=== PATIENT | male | born 1965 | race Caucasian/White ===

== ENCOUNTER 2023-01-31 13:09 | Outpatient (CLI) | payer BC, SELFPAY ==
--- NOTE | ~2023-01-31 | XR_ITS ---
XR lumbar spine 2-3V 01/31/2023 13:39 Indication: Low back pain Procedure: 3 views lumbar spine Comparison: No prior studies for comparison. Findings: There is disc narrowing at all lumbar levels, most advanced at L3-4 through L5-S1. There is moderate facet hypertrophy at L4-5 and L5-S1. Vertebral body heights are maintained. Pedicles intact . There is a left renal stone measuring 7 mm. Normal lumbar lordosis. Impression: 1: Moderate lumbar spondylosis. 2: Left nephrolithiasis. Reviewed, dictated and finalized at location A. Impression: 1: Moderate lumbar spondylosis. 2: Left nephrolithiasis.
--- NOTE | ~2023-01-31 | XR_ITS ---
XR_[id number]_[id number] 01/31/2023 13:39 Indication: Left knee pain Procedure: 2 views left knee Comparison: No prior studies for comparison. Findings: There is mild patellofemoral compartment osteoarthritis. No fracture, subluxation or disloc ation. No significant joint effusion. No foreign bodies. Impression: 1: Mild patellofemoral compartment osteoarthritis. Reviewed, dictated and finalized at location A. Impression: 1: Mild patellofemoral compartment osteoarthritis.
--- NOTE | ~2023-01-31 | XR_ITS ---
XR_[id number]_CR 01/31/2023 13:39 Indication: Right knee pain Procedure: 2 views right knee Comparison: No prior studies for comparison. Findings: There is patellofemoral compartment osteoarthritis. There is possible nondisplaced fracture s. Margin of the patella, on the lateral view. No significant joint effusion. Impression: 1: Possible nondisplaced fracture superior aspect of the patella. Correlate for point tenderness. Rec ommend correlation with CT as clinically indicated. 2: Mild patellofemoral compartment osteoarthritis. Reviewed, dictated and finalized at location A. Impression: 1: Possible nondisplaced fracture superior aspect of the patella. Correlate for point tenderness. Recommend correlation with CT as clinically indicated. 2: Mild patellofemoral compartment osteoarthritis.
== END 2023-01-31 13:10 | disposition home or self-care (01) ==
PROVIDERS: PCP Internal Medicine; Visit Provider Pain Medicine Interventional Pain Medicine
DX: M51.17 Intervertebral disc disorders with radiculopathy, lumbosacral region (principal); E66.9 Obesity, unspecified; F33.1 Major depressive disorder, recurrent, moderate; F41.1 Generalized anxiety disorder; M25.549 Pain in joints of unspecified hand; M47.22 Other spondylosis with radiculopathy, cervical region; M47.23 Other spondylosis with radiculopathy, cervicothoracic region; M47.896 Other spondylosis, lumbar region; N20.0 Calculus of kidney; M17.0 Bilateral primary osteoarthritis of knee
CPT/HCPCS: 72100; 73560

== ENCOUNTER 2023-11-17 13:04 | Outpatient (CLI) | payer OTHER, SELFPAY ==
--- NOTE | ~2023-11-17 | XR_ITS ---
XR hand RT min 3V DATE: 11/17/2023 13:26 INDICATION: First digit joint pain TECHNIQUE: 3 views COMPARISON: None FINDINGS: There is polyarticular osteoarthritis, including first carpometacarpal, first, second and p articularly at third metacarpophalangeal and multiple interphalangeal joints. No erosive change is no kirk. No chondrocalcinosis is detected. No fracture, dislocation, periosteal reaction or bone destruction. IMPRESSION: Polyarticular osteoarthritis Reviewed, dictated and finalized at location B. [employer]
== END 2023-11-17 13:05 | disposition home or self-care (01) ==
LOC: ANHIMG 13:07
PROVIDERS: PCP Internal Medicine; Visit Provider Pain Medicine Interventional Pain Medicine
DX: M47.27 Other spondylosis with radiculopathy, lumbosacral region (principal); M47.26 Other spondylosis with radiculopathy, lumbar region; M47.23 Other spondylosis with radiculopathy, cervicothoracic region; F33.1 Major depressive disorder, recurrent, moderate; E66.9 Obesity, unspecified; M47.22 Other spondylosis with radiculopathy, cervical region; F41.1 Generalized anxiety disorder; M19.041 Primary osteoarthritis, right hand
CPT/HCPCS: 73130

== ENCOUNTER 2024-02-28 11:50 | Outpatient (CLI) | payer OTHER, SELFPAY ==
--- NOTE | ~2024-02-28 | XR_ITS ---
Lumbosacral Spine: AP and lateral views Clinical History: Pain Findings: The normal lordotic curve is maintained. The vertebral bodies and posterior elements are i ntact. There is moderate degenerative disc change at L4-L5 and L5-S1. There is moderate to advanced f acet arthropathy from L4 through S1. The sacroiliac joints are normally outlined. Impression: Moderate degenerative spondylosis at the lower lumbar spine, as detailed above. Reviewed, dictated and finalized at location . Impression: Moderate degenerative spondylosis at the lower lumbar spine, as detailed above.
== END 2024-02-28 11:51 | disposition home or self-care (01) ==
LOC: ANHIMG 11:52
PROVIDERS: PCP Internal Medicine; Visit Provider Pain Medicine Interventional Pain Medicine
DX: M47.27 Other spondylosis with radiculopathy, lumbosacral region (principal)
CPT/HCPCS: 72100

== ENCOUNTER 2024-05-25 15:58 | Outpatient (CLI) | payer OTHER, SELFPAY ==
--- NOTE | ~2024-05-25 | XR_ITS ---
EXAMINATION: XR_[id number]_CR DATE: 05/25/2024 16:30 INDICATION: Chronic bilateral knee pain. TECHNIQUE: 2 views of left knee were obtained. COMPARISON: Left knee radiographs 01/31/2023 FINDINGS: Bone alignment is normal. No fracture. There is moderate osteoarthritis of medial compartme nt and mild osteoarthritis of lateral and patellofemoral compartments. There is a small knee joint ef fusion. IMPRESSION: 1. Moderate left knee osteoarthritis. 2. Small left knee joint effusion. Reviewed, dictated and finalized at location E.
--- NOTE | ~2024-05-25 | XR_ITS ---
EXAMINATION: XR_[id number]_CR DATE: 05/25/2024 16:30 INDICATION: Chronic bilateral knee pain. TECHNIQUE: 2 views of right knee were obtained. COMPARISON: Right knee radiographs 01/31/2023 FINDINGS: Bone alignment is normal. No fracture. There is moderate osteoarthritis of medial compartme nt and mild osteoarthritis of lateral and patellofemoral compartments. No knee joint effusion. IMPRESSION: 1. Moderate right knee osteoarthritis. Reviewed, dictated and finalized at location E.
== END 2024-05-25 15:59 | disposition home or self-care (01) ==
LOC: ANHIMG 16:00
PROVIDERS: PCP Internal Medicine; Visit Provider Pain Medicine Interventional Pain Medicine
DX: E66.9 Obesity, unspecified (principal); F33.1 Major depressive disorder, recurrent, moderate; F41.1 Generalized anxiety disorder; G23.8 Other specified degenerative diseases of basal ganglia; G60.8 Other hereditary and idiopathic neuropathies; G90.09 Other idiopathic peripheral autonomic neuropathy; G89.4 Chronic pain syndrome; M25.549 Pain in joints of unspecified hand; M17.0 Bilateral primary osteoarthritis of knee; M25.462 Effusion, left knee
CPT/HCPCS: 73560

== ENCOUNTER 2024-09-13 14:05 | Outpatient (CLI) | payer OTHER, SELFPAY ==
--- NOTE | ~2024-09-13 | XR_ITS ---
XR hand BI arthritis min 3V Ordering provider: Matt Freeman MD History: . Radiculopathy/ pain in unspecified hand, BILATERAL HAND PAIN . Comparison: November 17, 2023 FINDINGS: BONES: No acute fracture or dislocation. JOINT SPACES: The proximal and distal interphalangeal joints. Osteoarthritic changes of the first carpometacarpal joints. SOFT TISSUES: Normal. IMPRESSION: No acute osseous abnormality in both hands. Mild osteoarthritic changes of the proximal and distal interphalangeal joints and first carpometacarp al joints.. Reviewed, dictated and finalized at location A. IMPRESSION: No acute osseous abnormality in both hands. Mild osteoarthritic changes of the proximal and distal interphalangeal joints a nd first carpometacarpal joints..
--- NOTE | ~2024-09-13 | XR_ITS ---
XR_[id number]_CR Ordering provider: Matt Freeman MD History: . Radiculopathy/ pain in unspecified hand pain neck x wednesday . Comparison: None. FINDINGS: VERTEBRAL BODIES: Normal height and alignment. No visible fracture or subluxation. The dens is intact . Degenerative changes of the spine. DISK SPACES: Narrowing of the disc C4-C5, C5-C6 and C6-C7. Multilevel uncovertebral joint osteoarthri tic changes. PARASPINOUS SOFT TISSUES: No prevertebral soft tissue swelling. IMPRESSION: No acute osseous abnormality cervical spine. Multilevel degenerative disc disease. Reviewed, dictated and finalized at location A.
== END 2024-09-13 14:06 | disposition home or self-care (01) ==
LOC: ANHIMG 14:09
PROVIDERS: PCP Internal Medicine; Visit Provider Pain Medicine Interventional Pain Medicine
DX: E66.9 Obesity, unspecified (principal); F33.1 Major depressive disorder, recurrent, moderate; F41.1 Generalized anxiety disorder; G23.8 Other specified degenerative diseases of basal ganglia; G60.8 Other hereditary and idiopathic neuropathies; G90.09 Other idiopathic peripheral autonomic neuropathy; M54.12 Radiculopathy, cervical region; M50.30 Other cervical disc degeneration, unspecified cervical region; M19.041 Primary osteoarthritis, right hand; M19.042 Primary osteoarthritis, left hand
CPT/HCPCS: 72040; 73130

== ENCOUNTER 2024-10-05 14:38 | Outpatient (CLI) | payer OTHER, SELFPAY ==
--- NOTE | ~2024-10-05 | MR_ITS ---
EXAMINATION: MR cervical spine wo con DATE: 10/05/2024 15:49 INDICATION: Cervical radiculopathy. TECHNIQUE: Magnetic resonance imaging (MRI) of the cervical spine was performed without intravenous c ontrast. COMPARISON: Cervical spine radiographs 09/13/2024 FINDINGS: There is kyphosis of lower cervical spine. Vertebral body heights are normal. There is mode rately decreased disc height at C4-C5 and severely decreased disc height at C5-C6 and C6-C7. The spin al cord signal intensity is normal. The following disc levels are specifically discussed: C2-C3: The disc does not extend beyond the endplate margin. There is mild bilateral uncovertebral ya nt osteoarthritis. There is no facet joint osteoarthritis. There is mild right neural foraminal steno sis. There is no central canal stenosis. C3-C4: The disc is bulging. There is mild right and moderate left uncovertebral joint osteoarthritis. There is moderate and severe left facet joint osteoarthritis. There is mild right and moderate left neural foraminal stenosis. There is no central canal stenosis. C4-C5: The disc is bulging. There is severe bilateral uncovertebral joint osteoarthritis. There is mo derate bilateral facet joint osteoarthritis. There is moderate bilateral neural foraminal stenosis. T here is mild central canal stenosis. C5-C6: The disc is bulging. There is severe bilateral uncovertebral joint osteoarthritis. There is mo derate bilateral facet joint osteoarthritis. There is moderate bilateral neural foraminal stenosis. T here is mild central canal stenosis. C6-C7: The disc is bulging. There is severe bilateral uncovertebral joint osteoarthritis. There is mi ld bilateral facet joint osteoarthritis. There is mild bilateral neural foraminal stenosis. There is mild central canal stenosis. C7-T1: There is a central extrusion. There is no uncovertebral joint osteoarthritis. There is mild bi lateral facet joint osteoarthritis. There is no neural foraminal stenosis. There is no central canal stenosis. IMPRESSION: 1. Severe cervical spondylosis. Reviewed, dictated and finalized at location A. [employer]
--- NOTE | ~2024-10-05 | MR_ITS ---
EXAMINATION: MR lumbar spine wo con DATE: 10/05/2024 15:49 INDICATION: Chronic low back pain and lumbar radiculopathy TECHNIQUE: Magnetic resonance imaging (MRI) of the lumbar spine was performed without intravenous con trast. Sequences included sagittal T2-weighted FSE, sagittal T2-weighted FS FSE, sagittal T1-weighted FSE, and axial T2-weighted FSE. COMPARISON: None FINDINGS: 12 degrees lumbar dextroscoliosis. Sagittal alignment is normal. Vertebral body heights are normal. M oderate to severe disc height loss at L5-S1, moderate to severe right-sided predominant disc height l oss at L4-L5 and moderate to severe left-sided predominant disc height loss at L2-L3. There are T2 hy perintense fibrovascular degenerative endplate changes along portions of each of these disc spaces. M ild disc height loss at L3-L4. The conus medullaris terminates at L1. There is normal signal in the c audal spinal cord. Paravertebral soft tissues are unremarkable. The following disc levels are specifi michael discussed: T12-L1: The disc does not extend beyond the endplate margin. There is moderate bilateral facet joint osteoarthritis. There is no neural foraminal stenosis. There is no central canal stenosis. L1-L2: The disc does not extend beyond the endplate margin. There is mild to moderate bilateral facet joint osteoarthritis. There is no neural foraminal stenosis. There is no central canal stenosis. L2-L3: Disc is mildly bulging. There is mild bilateral facet joint osteoarthritis. There is mild righ t and mild to moderate left neural foraminal stenosis. There is mild central canal stenosis. L3-L4: Disc is bulging with annular fissure and small left paracentral disc extrusion with disc mater ial extending couple millimeters cephalad to the level of the inferior endplate of L3. There is mild right and mild to moderate left facet joint osteoarthritis. There is mild to moderate bilateral neura l foraminal stenosis. There is mild central canal stenosis. L4-L5: Disc is mildly bulging with superimposed annular fissure and right foraminal zone disc extrusi on with disc material extending couple millimeter caudal to the level of the superior endplate of L5. There is moderate bilateral facet joint osteoarthritis. There is moderate right and mild to moderate left neural foraminal stenosis. There is mild central canal stenosis. L5-S1: Disc is bulging with annular fissure. There is moderate left and severe right facet joint oste oarthritis. There is mild to moderate left and moderate right neural foraminal stenosis. There is mil d central canal stenosis. IMPRESSION: 1. 12 degrees lumbar dextroscoliosis with moderate to severe spondylosis. Reviewed, dictated and finalized at location B. [employer] PROGRAMMING
== END 2024-10-05 14:39 | disposition home or self-care (01) ==
PROVIDERS: PCP Internal Medicine; Visit Provider Pain Medicine Interventional Pain Medicine
DX: F33.1 Major depressive disorder, recurrent, moderate (principal); F41.1 Generalized anxiety disorder; G60.8 Other hereditary and idiopathic neuropathies; M47.892 Other spondylosis, cervical region; M47.896 Other spondylosis, lumbar region
CPT/HCPCS: 72141; 72148

== ENCOUNTER 2025-01-12 14:16 | Outpatient (CLI) | payer OTHER, SELFPAY ==
[2025-01-12 15:56] LABS: Basophils Percent Auto 0.3 % (0.2-1.2); Eosinophils Absolute Auto 0.1 K/mm3 (0-0.3); Eosinophils Percent Auto 1.8 % (0-4.4); Hematocrit 43.9 % (42.0-52.0); Hemoglobin 14.1 g/dL (14.0-18.0); Immature Granulocyte Absolute 0.02 K/mm3 (0.00-0.031); Immature Granulocyte Percent A 0.3 % (0-0.5); Lymphocytes Absolute Auto 1.26 K/mm3 (0.9-3.2); Lymphocytes Percent Auto 16.5 % (18.3-44.2); Mean Corpuscular HGB Conc 32.1 g/dl (32-36); Mean Corpuscular Hemoglobin 29.4 pg (26-34); Mean Corpuscular Volume 91.6 fl (80-100); Mean Platelet Volume 10.5 fl (7.4-10.4); Monocytes Absolute Auto 0.5 K/mm3 (0.1-0.6); Monocytes Percent Auto 6.5 % (2.6-8.5); Neutrophils Absolute Auto 5.7 K/mm3 (1.3-6.7); Neutrophils Percent Auto 74.6 % (45.5-73.1); Platelet Count Result 202 k/mm3 (150-375); Red Blood Count 4.79 M/mm3 (4.6-6.20); Red Cell Distribution Width 12.7 % (11.5-14.5); White Blood Count 7.6 K/mm3 (4.5-10.0)
[2025-01-12 16:09] LABS: Alanine Aminotransferase 30 U/L (6-50); Albumin Level 4.3 g/dL (3.5-5.1); Alkaline Phosphatase 83 U/L (38-126); Anion Gap 9 mmol/L (4-12); Aspartate Amino Transferase 22 U/L (17-59); Bilirubin,Total 0.8 mg/dL (0.2-1.3); Blood Urea Nitrogen 31 mg/dL (9-20); Calcium 9.4 mg/dL (8.4-10.2); Carbon Dioxide 31 mmol/L (22-30); Chloride 102 mmol/L (98-107); Estimated Glomerular Filt Rate 59; Glucose 110 mg/dL (65-110); Potassium 5.4 mmol/L (3.4-5.0); Sodium 142 mmol/L (137-145)
== END 2025-01-12 14:17 | disposition home or self-care (01) ==
PROVIDERS: PCP Internal Medicine; Visit Provider Internal Medicine
DX: Z01.89 Encounter for other specified special examinations (principal)
CPT/HCPCS: 36415; 71046; 80053; 85025; 93005

== ENCOUNTER 2025-01-13 09:12 | Outpatient (NON) | payer OTHER, SELFPAY ==
[2025-01-13 09:48] LABS: Add Urine Microscopic? NO; Appearance Urine Clear (Clear); Bilirubin Urine Negative (Negative); Blood Urine Negative (Negative); Color Urine Yellow (Yellow); Glucose Urine UA Negative (Negative); Ketones Urine Negative (Negative); Leukocyte Esterase Ur Negative LEU/UL (Negative); Nitrate Urine Negative (Negative); Protein Urine Negative (Negative); Specific Grav Ur 1.023 (1.001-1.035); Urobilinogen Urine 0.2 mg/dL (<2.0); pH Urine 5.5 (5.0-9.0)
== END 2025-01-13 09:13 | disposition home or self-care (01) ==
LOC: ANHLAB 09:23
PROVIDERS: PCP Internal Medicine; Visit Provider Internal Medicine
DX: Z01.89 Encounter for other specified special examinations (principal)
CPT/HCPCS: 81003

== ENCOUNTER 2025-01-16 14:08 | Outpatient (CLI) | payer OTHER, SELFPAY ==
[2025-01-16 14:49] LABS: Anion Gap 9 mmol/L (4-12); Blood Urea Nitrogen 21 mg/dL (9-20); Calcium 9.2 mg/dL (8.4-10.2); Carbon Dioxide 29 mmol/L (22-30); Chloride 101 mmol/L (98-107); Estimated Glomerular Filt Rate > 60; Glucose 111 mg/dL (65-110); Potassium 5.1 mmol/L (3.4-5.0); Sodium 139 mmol/L (137-145)
== END 2025-01-16 14:09 | disposition home or self-care (01) ==
LOC: ANHLAB 14:09
PROVIDERS: PCP Internal Medicine; Visit Provider Nurse Practitioner Adult Health
DX: M54.2 Cervicalgia (principal)
CPT/HCPCS: 36415; 80048